=== PATIENT | female | born 1995 | race Caucasian/White ===

== ENCOUNTER 2016-07-28 01:44 | Emergency (ER) | payer BC ==
[2016-07-28] MEDS ORDERED: Dexamethasone 4 MG TAB ONE (02:32)
== END 2016-07-28 02:40 | disposition home or self-care (01) ==
LOC: NAV ERS 01:44
DX: J02.9 Acute pharyngitis, unspecified (principal); F41.9 Anxiety disorder, unspecified; F32.9 Major depressive disorder, single episode, unspecified
CPT/HCPCS: 99282; J8540